=== PATIENT | female | born 1995 | race American Indian/Alaskan Native ===

== ENCOUNTER 2017-04-25 23:40 | Observation (INO) | payer SELFPAY ==
[2017-04-26] MEDS ORDERED: DUONEB *Not for PRN Use IH ONE ×3 (00:44→00:45)
[2017-04-26] MEDS ORDERED: TYLENOL PO ONE (01:52)
--- NOTE | 2017-04-26 02:02 | Emergency Department Report ---
- General Chief Complaint: Upper Respiratory Infection Stated Complaint: SOB/HEADACHE/CHILLS Time Seen by Provider: 04/26/17 00:59 Source: patient Mode of arrival: Ambulatory Limitations: No Limitations - History of Present Illness Initial Comments: This is a 21-year-old female well-nourished with nontoxic or ill in appearance that presents to ED with c/o of productive green colored sputum with cough, fever, and chills. Patient stated she had these symptoms for 2 weeks with no relief of OTC medication such as Claritin. Patient denies any chest pain, shortness of breath, nausea, vomiting, stiff neck, headache, blurred vision, visual changes, abdominal pain, calf pain or tenderness, numbness or tingling. Patient stated she did have migraine headaches that is intermittent that is currently not present. Patient denies any recent travels or long car rides. Patient denies any drug allergies. Patient denies any past medical history. MD Complaint: fever, cough -: Gradual, week(s) (2) Improves With: nothing Worsens With: nothing Associated Symptoms: fever, chills, cough. denies: myalgias, diaphoresis, headache, rhinorrhea, nasal congestion, stiff neck, chest pain, shortness of breath, abdominal pain, nausea, vomiting, diarrhea, dysuria, rash, confusion, right sweats, weight loss, epistaxis, hoarseness, ear pain - Related Data Previous Rx's Medication Instructions Recorded Last Taken Type Azithromycin [Zithromax Z-RIAZ] 250 mg PO DAILY #6 tablet 04/26/17 Unknown Rx Nystas/Diphen/Xyl Visc/Mylanta 30 ml MM Q4H PRN 5 Days 04/26/17 Unknown Rx [Magic Mouthwash] predniSONE [Deltasone] 20 mg PO BID #10 tab 04/26/17 Unknown Rx Allergies Allergy/AdvReac Type Severity Reaction Status Date / Time No Known Allergies Allergy Verified 04/26/17 05:16 ED Review of Systems ROS: Stated complaint: SOB/HEADACHE/CHILLS Other details as noted in HPI Constitutional: denies: chills, fever Eyes: denies: eye pain, eye discharge, vision change ENT: denies: ear pain, throat pain Respiratory: denies: cough, shortness of breath, wheezing Cardiovascular: denies: chest pain, palpitations Endocrine: no symptoms reported Gastrointestinal: denies: abdominal pain, nausea, diarrhea Genitourinary: denies: urgency, dysuria, discharge Musculoskeletal: denies: back pain, joint swelling, arthralgia Skin: denies: rash, lesions Neurological: denies: headache, weakness, paresthesias Psychiatric: denies: anxiety, depression Hematological/Lymphatic: denies: easy bleeding, easy bruising ED Past Medical Hx - Past Medical History Previous Medical History?: No - Surgical History Past Surgical History?: No - Social History Smoking Status: Current Every Day Smoker Substance Use Type: None - Medications Home Medications: Home Medications Medication Instructions Recorded Confirmed Last Taken Type Azithromycin [Zithromax Z-RIAZ] 250 mg PO DAILY #6 tablet 04/26/17 Unknown Rx Nystas/Diphen/Xyl Visc/Mylanta 30 ml MM Q4H PRN 5 Days 04/26/17 Unknown Rx [Magic Mouthwash] predniSONE [Deltasone] 20 mg PO BID #10 tab 04/26/17 Unknown Rx ED Physical Exam - General Limitations: No Limitations General appearance: alert, in no apparent distress - Head Head exam: Present: atraumatic, normocephalic, normal inspection - Eye Eye exam: Present: normal appearance, PERRL, EOMI. Absent: scleral icterus, conjunctival injection, nystagmus, periorbital swelling, periorbital tenderness Pupils: Present: normal accommodation - ENT ENT exam: Present: normal exam, normal orophraynx, mucous membranes moist, TM's normal bilaterally, normal external ear exam - Neck Neck exam: Present: normal inspection, full ROM. Absent: tenderness, meningismus, lymphadenopathy, thyromegaly - Respiratory Respiratory exam: Present: normal lung sounds bilaterally, wheezes (slight expiratory bilaterally upper and lower lobes). Absent: respiratory distress, rales, rhonchi, stridor, chest wall tenderness, accessory muscle use, decreased breath sounds, prolonged expiratory - Cardiovascular Cardiovascular Exam: Present: regular rate, normal rhythm, normal heart sounds. Absent: bradycardia, tachycardia, irregular rhythm, systolic murmur, diastolic murmur, rubs, gallop - GI/Abdominal GI/Abdominal exam: Present: soft, normal bowel sounds. Absent: distended, tenderness, guarding, rebound, rigid, diminished bowel sounds - Extremities Exam Extremities exam: Present: normal inspection, full ROM, normal capillary refill. Absent: tenderness, pedal edema, joint swelling, calf tenderness - Back Exam Back exam: Present: normal inspection, full ROM. Absent: tenderness, CVA tenderness (R), CVA tenderness (L), muscle spasm, paraspinal tenderness, vertebral tenderness, rash noted - Neurological Exam Neurological exam: Present: alert, oriented X3, CN II-XII intact, normal gait, reflexes normal - Psychiatric Psychiatric exam: Present: normal affect, normal mood - Skin Skin exam: Present: warm, dry, intact, normal color. Absent: rash ED Course Vital Signs 04/25/17 04/26/17 04/26/17 23:50 01:05 02:15 Temperature 100.3 F H 99.6 F Pulse Rate 134 H 140 H Respiratory 24 30 H Rate Blood Pressure 141/95 Blood Pressure [Left] O2 Sat by Pulse 98 95 99 Oximetry 04/26/17 04/26/17 03:48 05:32 Temperature 98.8 F 98.8 F Pulse Rate 115 H 99 H Respiratory 20 20 Rate Blood Pressure Blood Pressure 114/66 113/75 [Left] O2 Sat by Pulse 99 99 Oximetry - Reevaluation(s) Reevaluation #1: 04/26/17 02:05 Patient is able to talk in full sentences with no signs of distress. Reevaluation #2: 04/26/17 03:47 Patient stated feels much better after medical treatment in ED but is still wheezing bilateral upper and lower lobes Reevaluation #3: 04/26/17 03:48 Patient is nontoxic or ill in appearance. no signs of distress noted. Patient is sitting upright with O2 and watching TV. - Consultations Consultation #1: 04/26/17 03:47 Dr. Crespo has been consulted about patient v/s and lab results. Agrees to admission and treatment plan in the ED Consultation #2: 04/26/17 03:48 Dr. Gil (hospitalist) has been consulted and accept patient to his services. ED Medical Decision Making - Lab Data Result diagrams: 04/26/17 03:00 04/26/17 03:00 - Medical Decision Making ED course: This is a 21-year-old female that presents with upper respiratory infection and hypoxemia 1- patient was examined by myself. Due to patient having symptoms of green mucus production with expiratory wheezing patient received Solu-Medrol 125 IM and DuoNeb 2. Patient stated she feels much better but stated she is still having difficulty breathing and wheezing. Patient is able to speak full sentences with no signs of distress. 2- ABG has been obtained in the ED. 3-chest x-ray has been obtained in the ED. Dictated by radiologist with normal findings. Patient also received Tylenol 625 mg in the ED to decrease her temperature. 3-Patient was discussed with Dr. Crespo and agrees to the plan of care in the ED as well as admission. 4- Dr. Gil has been consulted about patient and accepts patient to his services. Full report has been given to Dr. Gil and he requested for a D- dimer to be placed. 5- At the time of patient transfer, patient does not seem toxic or ill in appearance. No signs of distress noted. 6- O2 and gambling monitor has been placed. Patient is been watched closely until patient goes to admit room. 7- Wells criteria 1.5 points. Low risk for PE. Critical care attestation.: If time is entered above; I have spent that time in minutes in the direct care of this critically ill patient, excluding procedure time. ED Disposition Clinical Impression: Upper respiratory infection Qualifiers: URI type: unspecified URI Qualified Code(s): J06.9 - Acute upper respiratory infection, unspecified Dyspnea Qualifiers: Dyspnea type: unspecified Qualified Code(s): R06.00 - Dyspnea, unspecified Disposition: -09 OP ADMIT IP TO THIS HOSP Is pt being admited?: Yes Condition: Stable
[2017-04-26] MEDS ORDERED: NACL 0.9% 1000 ML 1,000 ML IV ONE (02:32)
--- NOTE | 2017-04-26 02:36 | XRay Report ---
FINAL REPORT PROCEDURE: XR CHEST ROUTINE 2V TECHNIQUE: PA and lateral chest radiographs were obtained. CPT 97279 HISTORY: cough COMPARISON: No prior studies are available for comparison. FINDINGS: Heart: Normal. Mediastinum/Vessels: Normal. Lungs/Pleural space: Lungs are well-expanded. There are no infiltrates, effusions or pneumothoraces. Bony thorax: No acute osseous abnormality. Other: IMPRESSION: There is no acute cardiopulmonary abnormality.
[2017-04-26 02:40] LABS: ISTAT Base Excess 0; ISTAT HCO3 24.5; ISTAT PCO2 37.7 (35-45); ISTAT PH 7.421 (7.35-7.45); ISTAT PO2 74 (80-105); ISTAT SO2 95; ISTAT TCO2 26
[2017-04-26] MEDS ORDERED: MAGNESIUM SULFATE 2GM/50ML 2 GM/50 ML BAG IV ONE (03:06)
[2017-04-26 03:32] LABS: Basophils % (Auto) 0.3 % (0.0-1.8); Eosinophils % (Auto) 2.6 % (0.0-4.3); Hematocrit 41.7 % (30.3-42.9); Hemoglobin 13.8 gm/dl (10.1-14.3); Mean Corpuscular HGB Conc 33 % (30-34); Mean Corpuscular Hemoglobin 30 pg (28-32); Mean Corpuscular Volume 92 fl (79-97); Platelet Count 241 K/mm3 (140-440); Red Blood Count 4.53 M/mm3 (3.65-5.03); Red Cell Distribution Width 13.1 % (13.2-15.2); White Blood Count 14.1 K/mm3 (4.5-11.0)
[2017-04-26 03:46] LABS: Anion Gap 21 mmol/L; BUN/Creatinine Ratio 18.57; Blood Urea Nitrogen 13 mg/dL (7-17); Calcium 9.2 mg/dL (8.4-10.2); Carbon Dioxide 23 mmol/L (22-30); Chloride 95.8 mmol/L (98-107); Glucose 96 mg/dL (65-100); Potassium 3.7 mmol/L (3.6-5.0); Sodium 136 mmol/L (137-145)
[2017-04-26] MEDS ORDERED: ROBITUSSIN DM PO PRN (04:55)
[2017-04-26] MEDS ORDERED: TYLENOL PO PRN (04:56)
--- NOTE | 2017-04-26 05:03 | History and Physical Report ---
History of Present Illness Date of examination: 04/26/17 Date of admission: 04/26/17 Chief complaint: Chief complaint is shortness of breath or other complaining include palpitation , and cough History of present illness: History of present illness the patient is a 21-year-old female with no past medical history and no past surgical history presenting with shortness of breath going on for some hours number there is history of tachycardia or rapid heartbeat, there is history of low-grade fever and no nausea or vomiting. Patient denied history of chest pain and denied history of dizziness, patient was seen in the emergency room and evaluated and continued to have low oxygen saturation after breathing treatment, Solu-Medrol and oxygen treatment. Past History Past Surgical History: No surgical history Social history: smoking Family history: no significant family history Medications and Allergies Home Medications Medication Instructions Recorded Confirmed Last Taken Type Azithromycin [Zithromax Z-RIAZ] 250 mg PO DAILY #6 tablet 04/26/17 Unknown Rx Nystas/Diphen/Xyl Visc/Mylanta 30 ml MM Q4H PRN 5 Days 04/26/17 Unknown Rx [Magic Mouthwash] predniSONE [Deltasone] 20 mg PO BID #10 tab 04/26/17 Unknown Rx Active Meds: Active Medications Acetaminophen (Tylenol) 650 mg PO Q4H PRN PRN Reason: For Pain/Fever/Headache Albuterol/Ipratropium (Duoneb 0.5 Mg-3 Mg/3 Ml Soln) 1 ampul IH TIDRT MATTHIAS Guaifenesin (Robitussin Dm) 10 ml PO Q4H PRN PRN Reason: Cough Heparin Sodium (Porcine) (Heparin) 5,000 unit SUB-Q Q12HR MATTHIAS Levofloxacin/Dextrose (Levaquin 750mg/150ml) 750 mg in 150 mls @ 100 mls/hr IV Q24HR MATTHIAS PRN Reason: Protocol Review of Systems Constitutional: fever, no weight loss, no weight gain, no chills, no sweats, no night sweats, no fatigue, no weakness, no malaise, no lethargy, no poor appetite , no daytime sleepiness, no chronic pain Eyes: bilateral: other (NO BILATERAL EYE SYMPTOMS) Ears, nose, mouth and throat: no ear pain, no ear discharge, no tinnitis, no decreased hearing, no nose pain, no nasal congestion, no nasal discharge, no sinus pressure, no bleeding gums, no dental pain, no mouth pain, no dysphagia, no hoarseness, no sore throat, no post-nasal drip, no headache, no vertigo, no pain front of neck, no neck fullness/pressure Breasts: deferred Cardiovascular: shortness of breath, no chest pain, no rapid/irregular heart beat, no edema, no syncope, no paroxysmal nocturnal dyspnea, no claudication, no high blood pressure Respiratory: cough, wheezing, no cough with sputum, no excessive sputum, no hemoptysis, no pleurisy, no respiratory infections, no home oxygen Gastrointestinal: no nausea, no vomiting, no diarrhea, no constipation, no change in bowel habits, no hematemesis, no melena, no hematochezia, no loss of appetite, no early satiety, no heartburn, no indigestion, no jaundice, no dyspepsia/bloating, no early satiety, no lactose intolerance Genitourinary Female: no pelvic pain, no flank pain, no menorrhagia, no dysuria , no urinary frequency, no urgency, no stress incontinence, no post void dribbling, no incomplete emptying, no urge incontinence, no vaginal odor, no abnormal vaginal bleeding, no genital sores, no vaginal dryness, no decreased libido, no mood problems, no hot flashes Menstruation: no ammenorrhea, no postmenopausal Rectal: no pain, no itching, no hemorrhoids, no flatulence Musculoskeletal: no neck stiffness, no neck pain, no shooting arm pain, no arm numbness/tingling, no low back pain, no shooting leg pain, no leg numbness/ tingling, no morning stiffness, no muscle weakness, no muscle cramps, no myalgias, no limitation of motion, no frequent falls, no fractures, no loss of height, no prior amputations Integumentary: no rash, no pruritis, no redness, no sores, no wounds, no jaundice, no boils, no bullae, no lesions, no darkening of skin, no depigmentation, no acne, no dryness, no color changes, no brittle nails, no striae, no hirsutism, no foot/leg ulcers, no onychomycosis Neurological: no paralysis, no weakness, no parathesias, no numbness, no tingling, no seizures, no syncope, no tremors, no ataxia, no headaches, no migraines, no convulsions, no aphasia, no change in speech, no change in mentation, no confusion, no memory loss, no changes in smell/taste, no motor disturbance, no sensory deficit, no double vision, no loss of vision, no hearing difficulties, no burning pain, no paralysis, no spasticity Psychiatric: no memory loss, no change in sleep habits, no sleep disturbances, no insomnia, no hypersomnia, no change in appetite, no change in libido, no suicidal ideation, no disorientation, no hallucinations, no depression, no hopelessness, no anhedonia, no anxiety attacks, no difficulties concentrating, no confusion, no irritability, no sadness/tearfullness, no mood swings Endocrine: no heat intolerance, no excessive thirst, no polydipsia, no polyuria , no nocturia, no excessive sweating, no flushing, no thyroid mass, no palpatations, no high blood sugars, no low blood sugars, no recent glucocorticoid use Hematologic/Lymphatic: no easy bruising, no easy bleeding, no lymphadenopathy, no lymphedema, no thrombophilia Allergic/Immunologic: no urticaria, no allergic rhinitis, no persistent infections, no anaphylaxis, no angioedema, no gluten intolerance, no seasonal allergies Exam - Constitutional Vitals: Temp Pulse Resp BP Pulse Ox 98.8 F 115 H 20 114/66 99 04/26/17 03:48 04/26/17 03:48 04/26/17 03:48 04/26/17 03:48 04/26/17 03:48 General appearance: Present: no acute distress - EENT Eyes: Present: PERRL, EOM intact ENT: clear oral mucosa, dentition normal, no oropharyngeal erythema, no poor dentition, no thrush, no edentulous, no other - Neck Neck: Present: supple. Absent: normal ROM, masses or JVD, carotid bruits - Respiratory Respiratory effort: normal - Cardiovascular Heart Sounds: Present: S1 & S2. Absent: gallop, systolic murmur, diastolic murmur, rub, click - Extremities Extremities: no ischemia, No edema Peripheral Pulses: within normal limits - Abdominal General gastrointestinal: Present: soft, non-tender, non-distended, normal bowel sounds. Absent: tender, distended, rigid, absent bowel sounds, hepatomegaly, splenomegaly, mass, hernia Female genitourinary: Present: deferred - Rectal Rectal Exam: deferred - Integumentary Integumentary: Present: clear, warm, dry, normal turgor. Absent: erythema, rash , clammy - Musculoskeletal Musculoskeletal: strength equal bilaterally - Psychiatric Psychiatric: appropriate mood/affect - Neurologic Neurologic: CNII-XII intact Results - Labs CBC & Chem 7: 04/26/17 03:00 04/26/17 03:00 Labs: Laboratory Last Values WBC 14.1 K/mm3 (4.5-11.0) H 04/26/17 03:00 RBC 4.53 M/mm3 (3.65-5.03) 04/26/17 03:00 Hgb 13.8 gm/dl (10.1-14.3) 04/26/17 03:00 Hct 41.7 % (30.3-42.9) 04/26/17 03:00 MCV 92 fl (79-97) 04/26/17 03:00 MCH 30 pg (28-32) 04/26/17 03:00 MCHC 33 % (30-34) 04/26/17 03:00 RDW 13.1 % (13.2-15.2) L 04/26/17 03:00 Plt Count 241 K/mm3 (140-440) 04/26/17 03:00 Lymph % (Auto) 8.3 % (13.4-35.0) L 04/26/17 03:00 [place] % (Auto) 8.4 % (0.0-7.3) H 04/26/17 03:00 Eos % (Auto) 2.6 % (0.0-4.3) 04/26/17 03:00 Baso % (Auto) 0.3 % (0.0-1.8) 04/26/17 03:00 Lymph # 1.2 K/mm3 (1.2-5.4) 04/26/17 03:00 [place] # 1.2 K/mm3 (0.0-0.8) H 04/26/17 03:00 Eos # 0.4 K/mm3 (0.0-0.4) 04/26/17 03:00 Baso # 0.0 K/mm3 (0.0-0.1) 04/26/17 03:00 Seg Neutrophils % 80.4 % (40.0-70.0) H 04/26/17 03:00 Seg Neutrophils # 11.4 K/mm3 (1.8-7.7) H 04/26/17 03:00 POC ABG pH 7.421 (7.35-7.45) 04/26/17 02:31 POC ABG pCO2 37.7 (35-45) 04/26/17 02:31 POC ABG pO2 74 (80-105) L 04/26/17 02:31 POC ABG HCO3 24.5 04/26/17 02:31 POC ABG Total CO2 26 04/26/17 02:31 POC ABG O2 Sat 95 04/26/17 02:31 POC ABG Base Excess 0 04/26/17 02:31 FiO2 21 % 04/26/17 02:31 Sodium 136 mmol/L (137-145) L 04/26/17 03:00 Potassium 3.7 mmol/L (3.6-5.0) 04/26/17 03:00 Chloride 95.8 mmol/L (98-107) L 04/26/17 03:00 Carbon Dioxide 23 mmol/L (22-30) 04/26/17 03:00 Anion Gap 21 mmol/L 04/26/17 03:00 BUN 13 mg/dL (7-17) 04/26/17 03:00 Creatinine 0.7 mg/dL (0.7-1.2) 04/26/17 03:00 Estimated GFR > 60 ml/min 04/26/17 03:00 BUN/Creatinine Ratio 18.57 % 04/26/17 03:00 Glucose 96 mg/dL (65-100) 04/26/17 03:00 Calcium 9.2 mg/dL (8.4-10.2) 04/26/17 03:00 HCG, Qual Negative (Negative) 04/26/17 03:00 Assessment and Plan - Patient Problems (1) Bronchitis Current Visit: Yes Status: Acute Plan to address problem: She will be placed on observation in the medical k[facility] and will be on oxygen by nasal cannula 2 L/m, patient will be on DuoNeb 3 times a day when necessary shortness of breath I will be on Robitussin 10 mL every 4 hours for cough, patient will be on Solu-Medrol IV 60 mg every 8 hours and will be on when necessary medications like Tylenol for fever and IV Zofran for nausea vomiting (2) Hypoxemia Current Visit: Yes Status: Acute
[2017-04-26] MEDS ORDERED: ZOFRAN IV PRN (05:16)
[2017-04-26] MEDS: DUONEB *Not for PRN Use IH SCH ×3 (07:20→19:44)
[2017-04-26] MEDS: LEVAQUIN 750MG/150ML 750 MG/150 ML BAG IV SCH (09:27)
[2017-04-26] MEDS: HEPARIN SUB-Q SCH ×2 (09:29→21:48)
--- NOTE | 2017-04-26 15:27 | Admit Criteria Form ---
Admission Criteria Documentation: PULMONARY DISEASE GRG Clinical Indications for Admission to Inpatient Care ( Place 'X' for any and all applicable criteria): Hospital admission is needed for appropriate care of the patient because of 1 or more of the following(1)(2): [ ]I. Impending or actual respiratory arrest. See Respiratory Failure GRG guideline for severe respiratory disease and long-term mechanical ventilation patients. (3)(4) (5) [ ]II. Severe airflow or ventilation abnormalities (not responsive to emergency and observation care treatment as appropriate) as indicated by 1 or more of the following (6)(7)(8)(9) : [ ]a) PCO2 greater than 42 mm Hg (5.6 kPa) and pH less than 7.35 (new) [ ]b) Documented PCO2 increased more than 5 mm Hg (0.7 kPa) from disease baseline [ ]c) Airflow measurements[A] less than 60% of previous best or predicted (eg, peak expiratory flow rate less than 300 L/min) despite intensive emergent treatment(B) [ ]d) Required respiratory treatments that are performable only in acute inpatient setting [X ]III. Severe respiratory findings (not responsive to emergency and observation care treatment as appropriate) including 1 or more of the following(6)(9)(10): [ X]a) Respiratory distress as indicated by ALL of the following(6)(11) : [ X]i) Patient with 1 or more of the following: [X ]1) Dyspnea (difficulty breathing) [ ]2) Tachypnea [ ]3) Abnormal breathing pattern (eg, chest retractions) [ ]4) Other evidence of difficulty breathing [X ]ii) Evidence of respiratory compromise indicated by 1 or more of the following: [ X]1) Hypoxemia [ ]2) Altered mental status [ ]3) Other evidence of respiratory compromise (eg, pulmonary edema on chest x-ray) [ ]b) Stridor [ ]c) Gross hemoptysis(12) [ ]d) Acute cyanosis [ ]IV. Chronic lung disease with severe deterioration (not responsive to emergency and observation care treatment as appropriate) as indicated by 1 or more of the following(7) (13): [ ]a) SaO2 5% below baseline in patient with chronic hypoxemia [ ]b) New requirement for supplemental oxygen to keep SaO2 at baseline or acceptable level [ ]c) Required supplemental oxygen performable only in acute inpatient setting [ ]d) Severe airflow or ventilation abnormalities [ ]e) Previouslymobile patient unable to walk between rooms [ ]f) Inability to eat or sleep due to dyspnea [ ]g) Altered mental status that is severe or persistent [ ]V. Empyema or lung abscess(14)(15) [ ]Vl. Severe atelectasis or lung collapse(16)(17) [ ]Edis. Tuberculosis requiring inpatient treatment as indicated by 1 or more of the following(18)(19)(20)(21): [ ]a) Diagnosis suspected (eg, symptomatic patient from endemic area or in high-risk population, with abnormal chest imaging) and cannot be ruled out within observation care timeframe (ie, sputum analysis, nucleic acid amplification techniques not rapidly available or not diagnostic) [ ]b) Severely symptomatic patient (eg, Hypoxemia, Hemodynamic instability, Tachypnea) [ ]c) Txfpe-lkeg-ruqnoyitw infection suspected in newly diagnosed patient (eg, treatment regimen may require near-term adjustment) [ ]d) Newly diagnosed patient at high-risk of short-term deterioration (eg, HIV positive, frail, immunocompromised, chronic lung disease) [ ]e) High infectivity suspected (eg, laryngeal disease, cavitary pulmonary lesions, ongoing positivity of sputum) and 1 or more of the following: [ ]i) Unexposed household contacts at high risk (eg, immunocompromised, elderly, infants, chronic lung disease) [ ]ii) Patient unable or unwilling to avoid exposing others (eg, significant psychiatric disease, substance abuse, developmental disability) [ ]f) Complication of tuberculosis requiring inpatient treatment (eg , constrictive pericarditis, tubercular meningitis) [ ]g) Hospitalization mandated by public health authority (eg, patient continually noncompliant with directly observed therapy) [ ]VIII. High-risk pulmonary infection as indicated by 1 or more of the following(22)(23)(24)(25): [ ]a) Temperature less than 95 degrees F (35 degrees C) or greater than 103.1 degrees F (39.5 degrees C) [ ]b) Hemodynamic instability [ ]c) Immunocompromised patient (eg, AIDS, post transplant, neutropenic)(26)(27) [ ]d) History of severe COPD(28) [ ]e) History of severely symptomatic congestive heart failure(29) [ ]f) Other high-risk comorbidity (eg, poorly controlled diabetes, cirrhosis, chronic renal insufficiency) [ ]g) Hypoxemia [ ]h) severe stridor (30) [ ]i) Outpatient, observation, or recovery facility therapy has failed, is not appropriate, or is not feasible. [ ]IX. Complications of tracheostomy that remains after emergency or observation level care(31)(32)(33)(34) [ ]X. Respiratory complications of organ transplant (eg, rejection, respiratory failure, respiratory infection)(27) [ ]XI. Severe pulmonary arterial hypertension or pulmonary vascular disease requiring inpatient care indicated by 1 or more of the following(35)(36)(37)(38): [ ]a) Initiation or change of vasodilators (IV, subcutaneous, or inhaled) or other vasoactive medications needed [ ]b) IV anticoagulation needed (eg, immediate anticoagulation necessary, alternatives not appropriate) [ ]c) Arterial or pulmonary artery catheter monitoring needed due to infusion or other treatment [ ]XII. Cystic fibrosis requiring inpatient care as indicated by 1 or more of the following(39)(40): [ ]a) Severe exacerbation that does not respond to intensified home therapy(41) [ ]b) Severe exacerbation with patient unable to perform prescribed treatments at home [ ]c) Pneumonia [ ]d) Pneumothorax(42) [ ]e) Atelectasis [ ]f) Hemoptysis(43) [ ]XIII. Bronchiectasis requiring inpatient care as indicated by 1 or more of the following(44)(45): [ ]a) Respiratory distress [ ]b) Severe exacerbation and outpatient or observation care therapy has failed, is not appropriate, or is not feasible. [ ]XIV. Sarcoidosis requiring inpatient care as indicated by 1 or more of the following(46)(47)(48): [ ]a) Respiratory distress [ ]b) Cardiac involvement with arrhythmia(49) [ ]c) Outpatient or observation care therapy has failed, is not appropriate, or is not feasible. [ ]XV. Intestitial lung disease requiring inpatient care as indicated by 1 or more of the following(50)(51): [ ]a) Respiratory distress [ ]b) Severe exacerbation and outpatient or observation care therapy has failed, is not appropriate, or is not feasible [ ]XVI. Allergic pneumonitis requiring inpatient care as indicated by 1 or more of the following(52): [ ]a) Respiratory distress [ ]b) Acute eosinophilic pneumonia [ ]c) Churg Dorian with cardiac involvement [ ]d) Outpatient or observation care therapy has failed, is not appropriate, or is not feasible [ ]XVIl. Severe right heart failure requiring inpatient care as indicated by 1 or more of the following(35)(53)(54): [ ]a) Respiratory distress [ ]b) Debilitating anasarca that remains after emergency or observation level care (eg, tissue [ ]c) breakdown with severe infection, inability to void due to edema) [C](41)(42)(43)(44) [ ]d) Hemodynamic instability [ ]e) Syncope [ ]f) Angina that requires inpatient care (eg, not treatable in emergency or observation level of care) [ ]g) Increasing organ failure (eg, liver congestion with significant and worsening or new elevation of transaminases) [ ]XVIll. Injury requiring inpatient care (medical) as indicated by 1 or more of the following(59)(60)(61) [ ]a) Significant inhalation injury (eg, smoke inhalation, other toxic inhalation)(62)(63)(64) [ ]b) Airway obstruction that remains or is unstable after emergency or observation level care(65)(66) [ ]c) Severe pain requiring acute inpatient management [ ]d) Lung contusion(67) [ ]e) Flail chest(68) [ ]f) Bronchial tree injury [ ]g) Air or fat emboli [ ]h) Other injury not treatable in emergency or observation level care (eg, hemothorax)(55) [ ]XlX. Pulmonary hemorrhage or significant hemoptysis(12)(43)(69) [ ]XXl. Complications of transplanted lung indicated by 1 or more of the following(70)(71) [ ]a) Acute graft rejection requiring inpatient management (eg, intravenous immunosuppression)(72)(73)(74) [ ]b) Failure of transplant lung as indicated by 1 or more of the following(75)(76): [ ]i) Anastomotic leak [ ]ii) Airway ischemia or necrosis [ ]iii) Airway fistula [ ]iv) Obstructing granulation tissue requiring intervention [ ]v) Bronchial stenosis or stricture requiring intervention [ ]vi) Tracheobronchomalacia requiring intervention [ ]vii) Severe airflow or ventilation abnormalities [ ]viii) Severe respiratory findings [ ]c) Infection requiring inpatient management (eg, Hemodynamic instability, need for intravenous antimicrobial treatment)(77)(78)(79)(80)(81)(82 [ ]d) Other complication of transplanted lung (eg, obliterative bronchiolitis, plastic bronchitis, thrombotic microangiopathy, constrictive pericarditis) requiring inpatient management(83)(84)(85)(86)(87) [ ]XXll. Inpatient palliative care needed.[D](88)(89)(90)(91) [ ]XXlll. Pulmonary Disease condition, symptom, or finding for which emergency and observation care have failed or are not considered appropriate. The original [email or web address] content created by [facility] has been revised. The portions of the content which have been revised are identified through the use of italic text or in bold, and [facility] has neither reviewed nor approved the modified material. All other unmodified content is copyright [email or web address]. Please see references footnoted in the original [facility] edition 2017 Admission Criteria Met: Yes
[2017-04-27] MEDS ORDERED: NACL ONE (08:23)
[2017-04-27] MEDS: DUONEB *Not for PRN Use IH SCH ×2 (08:24→13:51)
--- NOTE | 2017-04-27 09:28 | Cat Scan Report ---
CTA chest: PA protocol. History: Shortness of breath chest pain. Findings: No endobronchial or mediastinal mass. No mediastinal, hilar or axillary adenopathy. No evidence of pulmonary embolism or aortic aneurysm. No pleural or pericardial effusion. Infiltration right lower lobe. Impression: No evidence of pulmonary embolism. Infiltrate right lower lobe suggestive of pneumonitis.
--- NOTE | 2017-04-27 10:30 | Discharge Summary ---
Providers - Providers Date of Admission: 04/26/17 04:53 Date of discharge: 04/27/17 Attending physician: XU FERGUSON MD Primary care physician: [employer] Hospitalization Reason for admission: shortness of breath Condition: Stable Hospital course: Patient is a pleasant 21-year-old female with no past medical history and no past surgical history presenting with shortness of breath going on for some hours number there is history of tachycardia or rapid heartbeat, there is history of low-grade fever and no nausea or vomiting. Patient denied history of chest pain and denied history of dizziness, patient was seen in the emergency room and evaluated and continued to have low oxygen saturation after breathing treatment, Solu-Medrol and oxygen treatment. She reports that she had tried ncie-jys-ruucmlu for about 2 weeks with no improvement. On presentation showed a hospital imaging studies were concerning for pneumonitis. She did have an elevated d-dimer with a CTA that was negative. The patient was treated with DuoNeb's Medrol IV. She did have remarkable improvement also was placed on empiric antibiotic coverage. She is clinically stable at this point with no fever, discharged with tapering dose of steroids and to follow up outpatient. With her primary care physician (1) Bronchitis (2) sinus tachycardia 3. Acute respiratory failure with Hypoxemia 4. Acute pneumonitis Disposition: - TO HOME OR SELFCARE Time spent for discharge: 35 mins Core Measure Documentation - Palliative Care Palliative Care/ Comfort Measures: Not Applicable - Core Measures Any of the following diagnoses?: none - VTE Discharge Requirements Deep Vein Thrombosis/Pulmonary Embolism Present on Admission: No Exam - Physical Exam Narrative exam: VITAL SIGNS: Reviewed. GENERAL: The patient appeared well nourished and normally developed. Vital signs as documented. HEAD: No signs of head trauma. EYES: Pupils are equal. Extraocular motions intact. EARS: Hearing grossly intact. MOUTH: Oropharynx is normal. NECK: No adenopathy, no JVD. CHEST: Chest with clear breath sounds bilaterally. No wheezes, rales, or rhonchi. CARDIAC: Regular rate and rhythm. S1 and S2, without murmurs, gallops, or rubs. VASCULAR: No Edema. Peripheral pulses normal and equal in all extremities. ABDOMEN: Soft, without detectable tenderness. No sign of distention. No rebound or guarding, and no masses palpated. Bowel Sounds normal. MUSCULOSKELETAL: Good range of motion of all major joints. Extremities without clubbing, cyanosis or edema. NEUROLOGIC EXAM: Alert and oriented x 3. No focal sensory or strength deficits. Speech normal. Follows commands. PSYCHIATRIC: Mood normal. SKIN: No rash or lesions. - Constitutional Vitals: Temp Pulse Resp BP Pulse Ox 97.9 F 100 H 18 125/74 94 04/27/17 08:17 04/27/17 08:33 04/27/17 08:33 04/27/17 08:04/27/17 08:29 Plan Activity: advance as tolerated, fall precautions Diet: low fat Special Instructions: smoking cessation Follow up with: PRIMARY CARE, [Primary Care Provider] - 3-5 Days Prescriptions: Azithromycin [Zithromax Z-RIAZ] 250 mg PO DAILY #6 tablet Nystas/Diphen/Xyl Visc/Mylanta [Magic Mouthwash] 30 ml MM Q4H PRN 5 Days PRN Reason: Cough predniSONE [Deltasone] 20 mg PO BID #10 tab
[2017-04-27] MEDS: LEVAQUIN 750MG/150ML 750 MG/150 ML BAG IV SCH (11:18)
[2017-04-27] MEDS: HEPARIN SUB-Q SCH (11:20)
[2017-04-27 16:41] VITALS: BP 131/76
== END 2017-04-27 17:00 | disposition home or self-care (01) ==
LOC: ED 23:40 → 3A 04-26 04:53
PROVIDERS: ADMIT Internal Medicine; ATTEND Internal Medicine
DX: J40 Bronchitis, not specified as acute or chronic (principal); R09.02 Hypoxemia; J06.9 Acute upper respiratory infection, unspecified; R51 Headache; R06.00 Dyspnea, unspecified; F17.210 Nicotine dependence, cigarettes, uncomplicated
CPT/HCPCS: 36415; 71020; 71275; 80048; 82803; 84703; 85025; 85379; 93970; 94640; 96361; 96365; 96366; 96367; 96372; 96375; 96376; 99285; G0378; J1644; J1956; J2920; J2930; J3475; J7030; Q9967

== ENCOUNTER 2017-06-22 13:57 | Emergency (ER) | payer MEDICAID ==
[2017-06-22 15:11] LABS: Hemoglobin 13.8 gm/dl (10.1-14.3); Mean Corpuscular HGB Conc 34 % (30-34); Mean Corpuscular Hemoglobin 31 pg (28-32); Mean Corpuscular Volume 91 fl (79-97); Platelet Count 235 K/mm3 (140-440); Red Blood Count 4.49 M/mm3 (3.65-5.03); Red Cell Distribution Width 13.8 % (13.2-15.2)
[2017-06-22 15:31] LABS: Anion Gap 20 mmol/L; Blood Urea Nitrogen 18 mg/dL (7-17); Calcium 9.3 mg/dL (8.4-10.2); Carbon Dioxide 26 mmol/L (22-30); Chloride 97.2 mmol/L (98-107); Glucose 102 mg/dL (65-100); Potassium 3.7 mmol/L (3.6-5.0); Sodium 139 mmol/L (137-145)
[2017-06-22 15:45] LABS: Basophils % (Manual) 0 % (0.0-1.8); Blastocytes % (Manual) 0 %; Diff Status Complete; Platelet Estimate Consistent w Auto; RBC Morphology Normal
--- NOTE | 2017-06-22 19:47 | Emergency Department Report ---
ED N/V/D HPI - General Chief complaint: Nausea/Vomiting/Diarrhea Stated complaint: NAUSEA/VOMITING/CANT KEEP FOOD DOWN Time Seen by Provider: 06/22/17 19:33 Source: patient, family Mode of arrival: Ambulatory Limitations: No Limitations - History of Present Illness Initial comments: He reports that she is been having nausea and vomiting over 2 weeks that's been intermittent. She said she is having more nauseated and vomited. Last time that she vomited was yesterday. Patient reports that she is not because she is a lesbian. She denies any urinary burning and frequency urgency. Reports no back pain. Denies any abdominal pain. Denies any fever or chills. Last menstrual period was 05/18/2017. No [id number] medication taken for nausea. Any vaginal bleeding or discharge. MD complaint: nausea, vomiting Onset/Timin -: week(s) Description of Vomiting: food contents Associated Abdominal Pain: No Pain Scale: 0 Context: other (unknown) Associated Symptoms: denies: myalgias, chest pain, cough, diaphoresis, fever/ chills, headaches, loss of appetite, malaise, nausea/vomiting, rash, dysuria, shortness of breath, syncope, weakness - Related Data Previous Rx's Medication Instructions Recorded Last Taken Type Azithromycin [Zithromax Z-RIAZ] 250 mg PO DAILY #6 tablet 04/26/17 Unknown Rx Nystas/Diphen/Xyl Visc/Mylanta 30 ml MM Q4H PRN 5 Days 04/26/17 Unknown Rx [Magic Mouthwash] predniSONE [Deltasone] 20 mg PO BID #10 tab 04/26/17 Unknown Rx Nitrofurantoin [place]/M-Cryst 100 mg PO Q12HR #14 capsule 06/22/17 Unknown Rx [Macrobid CAP] Promethazine [Phenergan TAB] 25 mg PO Q8HR PRN #12 tab 06/22/17 Unknown Rx Allergies Allergy/AdvReac Type Severity Reaction Status Date / Time No Known Allergies Allergy Verified 04/26/17 05:16 ED Review of Systems ROS: Stated complaint: NAUSEA/VOMITING/CANT KEEP FOOD DOWN Other details as noted in HPI Comment: All other systems reviewed and negative Constitutional: no symptoms reported Eyes: denies: eye pain, eye discharge ENT: denies: throat pain, congestion Respiratory: no symptoms reported. denies: cough, orthopnea, shortness of breath, SOB at rest, stridor, wheezing Cardiovascular: denies: chest pain, palpitations Gastrointestinal: nausea, vomiting. denies: abdominal pain, diarrhea, constipation, hematemesis, melena, hematochezia Genitourinary: denies: urgency, dysuria, frequency, hematuria, discharge Musculoskeletal: denies: back pain, joint swelling, arthralgia, myalgia Skin: denies: rash Neurological: denies: headache, weakness, numbness, paresthesias, confusion, abnormal gait, vertigo ED Past Medical Hx - Past Medical History Previous Medical History?: Yes Hx Congestive Heart Failure: No Hx Diabetes: No Hx Arthritis: No Additional medical history: vaginal delivery 07-03-2016, gastritis - Surgical History Past Surgical History?: No - Family History Family history: no significant - Social History Smoking Status: Former Smoker Substance Use Type: Alcohol, Non Opiate Pain - Medications Home Medications: Home Medications Medication Instructions Recorded Confirmed Last Taken Type Azithromycin [Zithromax Z-RIAZ] 250 mg PO DAILY #6 tablet 04/26/17 Unknown Rx Nystas/Diphen/Xyl Visc/Mylanta 30 ml MM Q4H PRN 5 Days 04/26/17 Unknown Rx [Magic Mouthwash] predniSONE [Deltasone] 20 mg PO BID #10 tab 04/26/17 Unknown Rx Nitrofurantoin [place]/M-Cryst 100 mg PO Q12HR #14 capsule 06/22/17 Unknown Rx [Macrobid CAP] Promethazine [Phenergan TAB] 25 mg PO Q8HR PRN #12 tab 06/22/17 Unknown Rx ED Physical Exam - General Limitations: No Limitations General appearance: alert, in no apparent distress - Head Head exam: Present: atraumatic, normocephalic, normal inspection - Eye Eye exam: Present: normal appearance, PERRL, EOMI. Absent: scleral icterus, conjunctival injection Pupils: Present: normal accommodation - ENT ENT exam: Present: normal exam, normal orophraynx, mucous membranes moist, TM's normal bilaterally, normal external ear exam - Neck Neck exam: Present: normal inspection, full ROM. Absent: tenderness, lymphadenopathy - Respiratory Respiratory exam: Present: normal lung sounds bilaterally. Absent: respiratory distress, wheezes, rales, rhonchi, stridor, chest wall tenderness - Cardiovascular Cardiovascular Exam: Present: regular rate, normal rhythm, normal heart sounds - GI/Abdominal GI/Abdominal exam: Present: soft, normal bowel sounds. Absent: distended, tenderness, guarding, rebound, rigid - Extremities Exam Extremities exam: Present: normal inspection, full ROM, normal capillary refill. Absent: tenderness, pedal edema, joint swelling, calf tenderness - Back Exam Back exam: Present: normal inspection, full ROM. Absent: tenderness, CVA tenderness (R), CVA tenderness (L), muscle spasm, paraspinal tenderness, vertebral tenderness, rash noted - Neurological Exam Neurological exam: Present: alert, oriented X3, normal gait. Absent: motor sensory deficit, reflexes normal - Psychiatric Psychiatric exam: Present: normal affect, normal mood - Skin Skin exam: Present: warm, dry, intact, normal color. Absent: rash ED Course Vital Signs 06/22/17 06/22/17 14:33 22:44 Temperature 98.8 F Pulse Rate 103 H 84 Respiratory 18 Rate Blood Pressure 124/70 O2 Sat by Pulse 100 Oximetry - Reevaluation(s) Reevaluation #1: 06/22/17 22:48 Patient given 1 L IV fluid and emergency room with 4 mg of Zofran IV. She is able to tolerate oral liquids and emergency room after Zofran. Patient urinalysis positive uti Reevaluation #2: 06/22/17 22:59 She did not have the test ordered and labs therefore urine test place and lab is in the process of running tests ED Medical Decision Making - Lab Data Result diagrams: 06/22/17 15:01 06/22/17 15:01 Lab Results 06/22/17 06/22/17 06/22/17 Range/Units 15:01 15:01 20:30 WBC 8.0 (4.5-11.0) K/mm3 RBC 4.49 (3.65-5.03) M/mm3 Hgb 13.8 (10.1-14.3) gm/dl Hct 41.0 (30.3-42.9) % MCV 91 (79-97) fl MCH 31 (28-32) pg MCHC 34 (30-34) % RDW 13.8 (13.2-15.2) % Plt Count 235 (140-440) K/mm3 Add Manual Diff Complete Total Counted 100 Seg Neutrophils % [employer] Seg Neuts % (Manual) 41.0 (40.0-70.0) % Band Neutrophils % 0 % Lymphocytes % (Manual) 42.0 H (13.4-35.0) % Reactive Lymphs % (Man) 1.0 % Monocytes % (Manual) 10.0 H (0.0-7.3) % Eosinophils % (Manual) 6.0 H (0.0-4.3) % Basophils % (Manual) 0 (0.0-1.8) % Metamyelocytes % 0 % Myelocytes % 0 % Promyelocytes % 0 % Blast Cells % 0 % Nucleated RBC % Not Reportable Seg Neutrophils # Man 3.3 (1.8-7.7) K/mm3 Band Neutrophils # 0.0 K/mm3 Lymphocytes # (Manual) 3.4 (1.2-5.4) K/mm3 Abs React Lymphs (Man) 0.1 K/mm3 Monocytes # (Manual) 0.8 (0.0-0.8) K/mm3 Eosinophils # (Manual) 0.5 H (0.0-0.4) K/mm3 Basophils # (Manual) 0.0 (0.0-0.1) K/mm3 Metamyelocytes # 0.0 K/mm3 Myelocytes # 0.0 K/mm3 Promyelocytes # 0.0 K/mm3 Blast Cells # 0.0 K/mm3 WBC Morphology Not Reportable Hypersegmented Neuts Not Reportable Hyposegmented Neuts Not Reportable Hypogranular Neuts Not Reportable Smudge Cells Not Reportable Toxic Granulation Not Reportable Toxic Vacuolation Not Reportable Dohle Bodies Not Reportable Pelger-Huet Anomaly Not Reportable Gregg Rods Not Reportable Platelet Estimate Consistent w auto Clumped Platelets Not Reportable Plt Clumps, EDTA Not Reportable Large Platelets Not Reportable Giant Platelets Not Reportable Platelet Satelliting Not Reportable Plt Morphology Comment Not Reportable RBC Morphology Normal Dimorphic RBCs Not Reportable Polychromasia Not Reportable Hypochromasia Not Reportable Poikilocytosis Not Reportable Anisocytosis Not Reportable Microcytosis Not Reportable Macrocytosis Not Reportable Spherocytes Not Reportable Pappenheimer Bodies Not Reportable Sickle Cells Not Reportable Target Cells Not Reportable Tear Drop Cells Not Reportable Ovalocytes Not Reportable Helmet Cells Not Reportable Abbasi-[place] Bodies Not Reportable [place] Rings Not Reportable [place] Cells Not Reportable Bite Cells Not Reportable Crenated Cell Not Reportable Elliptocytes Not Reportable Acanthocytes (Spur) Not Reportable Rouleaux Not Reportable Hemoglobin C Crystals Not Reportable Schistocytes Not Reportable Malaria parasites Not Reportable Arthur Bodies Not Reportable Hem Pathologist Commnt No Sodium 139 (137-145) mmol/L Potassium 3.7 (3.6-5.0) mmol/L Chloride 97.2 L (98-107) mmol/L Carbon Dioxide 26 (22-30) mmol/L Anion Gap 20 mmol/L BUN 18 H (7-17) mg/dL Creatinine 0.9 (0.7-1.2) mg/dL Estimated GFR > 60 ml/min BUN/Creatinine Ratio 20.00 % Glucose 102 H (65-100) mg/dL Calcium 9.3 (8.4-10.2) mg/dL Urine Color Yellow (Yellow) Urine Turbidity Clear (Clear) Urine pH 6.0 (5.0-7.0) Ur Specific [place] 1.026 (1.003-1.030) Urine Protein <15 mg/dl (Negative) mg/dL Urine Glucose (UA) Neg (Negative) mg/dL Urine Ketones Neg (Negative) mg/dL Urine Blood Sm (Negative) Urine Nitrite Neg (Negative) Urine Bilirubin Neg (Negative) Urine Urobilinogen < 2.0 (<2.0) mg/dL Ur Leukocyte Esterase Sm (Negative) Urine WBC (Auto) 7.0 H (0.0-6.0) /HPF Urine RBC (Auto) 6.0 (0.0-6.0) /HPF U Epithel Cells (Auto) 6.0 (0-13.0) /HPF Urine Mucus 3+ /HPF urine culture sent - Medical Decision Making ED Course: Patient was treated in emergency room for nausea and vomiting that has been waxing and waning . She has no other symptoms. Last menstrual period was 05/18/2017. Patient urinalysis revealed that she had acute cystitis with hematuria. CBC and BMP is stable and the test is negative. Patient was given IV fluids 1 L with IV Zofran 4 mg and voiced that she was feeling better and she was also orally challenged without any nausea or vomiting. Lab results with patient's along with diagnosis and treatment plan and she is in agreement. Patient will be discharged home with antibiotic and medication for nausea and to follow up with her primary care physician in 2-3 days. She does have access to primary care. Labs: CBC, BMP and urine hCG stable. Urinalysis positive for urinary tract infection. Culture sent and pending. Assessment/Plan 1. Acute Cystitis with Hematuria-Rocephin 1 g IM given in emergency room 2. Nausea and vomiting-patient given IV fluid 1 L in emergency room, Zofran IV 1 with relief of nausea and vomiting and she was given poor by mouth liquid which she tolerated well discharged home in family with prescription Macrobis and phenergan prn. Follow -up with her primary care physician in 2-3 days. Critical care attestation.: If time is entered above; I have spent that time in minutes in the direct care of this critically ill patient, excluding procedure time. ED Disposition Clinical Impression: Acute cystitis with hematuria Nausea and vomiting Qualifiers: Vomiting type: unspecified Vomiting Intractability: non-intractable Qualified Code(s): R11.2 - Nausea with vomiting, unspecified Disposition: DC-01 TO HOME OR SELFCARE Is pt being admited?: No Does the pt Need Aspirin: No Condition: Stable Instructions: Urinary Tract Infection in Women (ED), Acute Nausea and Vomiting (ED) Additional Instructions: increase Your fluid intake Please do not drive or operate heavy machinery while taking Phenergan this medication causes drowsiness Please increase fluid intake Eat bland diet for the next 72 hours to include banana, rice, applesauce and toast. Prescriptions: Nitrofurantoin [place]/M-Cryst [Macrobid CAP] 100 mg PO Q12HR #14 capsule Promethazine [Phenergan TAB] 25 mg PO Q8HR PRN #12 tab PRN Reason: Nausea Referrals: Your, PCP [Other] - 2-3 Days Forms: Work/School Release Form(ED), Accompanied Note
[2017-06-22] MEDS: NACL 0.9% 1000 ML 1,000 ML IV ONE (20:30)
[2017-06-22] MEDS: ZOFRAN IV ONE (20:30)
[2017-06-22 20:58] LABS: Bilirubin,Urine NEG (Negative); Blood,Urine SM (Negative); Ketones,Urine NEG (Negative); Leukocyte Esterase,Urine SM (Negative); Mucus,Urine 3+ /HPF; Nitrite,Urine NEG (Negative); Protein,Urine <15 mg/dL mg/dL (Negative); Urobilinogen,Urine < 2.0 mg/dL (<2.0)
[2017-06-22] MEDS: ROCEPHIN IM STA (22:40)
[2017-06-22] MEDS: XYLOCAINE 1% MPF 5 mL INFILTRATI ONE (22:40)
[2017-06-22 23:42] VITALS: BP 109/75
== END 2017-06-22 23:42 | disposition home or self-care (01) ==
LOC: ED 13:57
DX: N30.01 Acute cystitis with hematuria (principal); R11.2 Nausea with vomiting, unspecified; Z87.891 Personal history of nicotine dependence
CPT/HCPCS: 36415; 80048; 81001; 81025; 82962; 85007; 85025; 87086; 96361; 96372; 96374; 99283; J0696; J2405; J7030